=== PATIENT | male | born 1985 | race African-American/Black ===

== ENCOUNTER 2017-01-01 20:08 | Emergency (ER) | payer SELFPAY ==
[2017-01-01] MEDS ORDERED: 0.9 % SODIUM CHLORIDE 1,000 ML IV ONE (21:17)
[2017-01-01] MEDS: 0.9 % SODIUM CHLORIDE 1,000 ML IV SCH (21:25)
[2017-01-01 21:46] LABS: eGFR (African) > 60; eGFR (Non-African) > 60
[2017-01-01 21:54] LABS: BASOPHILS % 0.5 (0.0-1.5); EOSINOPHILS % 0.7 % (0.0-6.8); MEAN CORPUSCULAR HEMOGLOBIN 28.2 pg (28.0-34.0); MEAN CORPUSCULAR VOLUME 88.2 fl (80.0-100.0); MONOCYTES % 3.1 % (0.0-11.0); NEUTROPHILS # 8.8 # k/uL (1.4-7.7)
[2017-01-01] MEDS: fentaNYL CITRATE/PF 100 MCG/ 2ML AMP IVP ONE (22:22)
[2017-01-01] MEDS ORDERED: AMOXICILLIN 500 MG CAPSULE PO ONE (22:41)
[2017-01-01] MEDS ORDERED: CLINDAMYCIN HCL 150 MG CAPSULE PO ONE (22:41)
[2017-01-01] MEDS: CLINDAMYCIN HCL 150 MG CAPSULE PO ONE (22:45)
[2017-01-01] MEDS: AMOXICILLIN 250 MG/5 ML 100ml BTL PO ONE (22:45)
[2017-01-01 23:24] VITALS: BP 125/58
--- NOTE | 2017-01-02 00:34 | ED Physician Documentation ---
Abdominal Pain - HISTORIAN Historian: patient, spouse - HPI Stated Complaint: Fever, chills, right flank pain Chief Complaint: Abdominal Pain Additonal Information: rt upper and lower abd and flank pain onset three months ago intermittent sig worse past few days w/fever to 102 Onset: other (3 months ago intermittent episodes) Duration: waxing, waning Timing: worse Context: denies: out of country travel, bad food Severity: moderate Quality: pain, burning, cramping Associated Symptoms: fever, chills Exacerbated by: denies: food Relieved by: nothing Further Comments: no - ROS CONST: no problems GI/: none CVS/RESP: none EYES/ENT: none MS/SKIN/LYMPH: none NEURO/PSYCH: none - SOCIAL HX Smoking History: non-smoker Alcohol Use: none Drug Use: none - FAMILY HX Family History: no significant history - PAST HX Past History: none Surgeries/Procedures: none Home Medications: Ambulatory Orders Medication Instructions Recorded Amoxicillin [Trimox] 500 mg PO QID #40 capsule 01/01/17 Clindamycin HCl [Cleocin] 300 mg PO TID #30 capsule 01/01/17 Allergies/Adverse Reactions: Allergies Allergy/AdvReac Type Severity Reaction Status Date / Time No Known Allergies Allergy Verified 01/01/17 20:34 - VITAL SIGNS Vital Signs: Vital Signs Temp Pulse Resp BP Pulse Ox 102.9 F H 72 16 114/65 98 01/01/17 20:10 01/01/17 20:10 01/01/17 20:10 01/01/17 20:10 01/01/17 20:10 - REVIEWED ASSESSMENTS Nursing Assessment Reviewed: Yes Vitals Reviewed: Yes ED Results Lab/Radiology - Lab Results Lab Results: CT reveals gall stones - Orders Orders: ED Orders Category Date Time Status CT ABD & PELVIS W/ CON Stat Exams 01/01/[address] ABD & PELVIS W/O CON Routine Exams 01/01/17 21:34 Taken AMYLASE Routine Lab 01/01/17 Ordered AMYLASE Routine Lab 01/01/17 21:23 Completed CBC AUTO DIFF Routine Lab 01/01/17 21:23 Completed CBC/PLATELET/DIFF Routine Lab 01/01/17 Ordered CMP Routine Lab 01/01/17 Ordered CMP Routine Lab 01/01/17 21:23 Completed URINALYSIS Routine Lab 01/01/17 Ordered 0.9 % Sodium Chloride [Normal Saline] 1,000 ml Med 01/01/17 21:00 Ordered IV Q10H Amoxicillin [Amoxil 250Mg/5Ml] Med 01/01/17 22:39 Once 1,000 mg PO NOW ONE Clindamycin HCl [Cleocin] Med 01/01/17 22:39 Once 300 mg PO NOW ONE HYDROcodone /APAP 5/325 [[place] 5/325] Med 01/01/17 22:38 Once 1 each PO NOW ONE fentaNYL CITRATE/PF [Duragesic] Med 01/01/17 20:44 Discontinued 50 mcg IVP NOW ONE Abdominal Pain Physical Exam - Physical Exam General Appearance: mild distress EENT: eye inspection normal NECK: normal inspection RESPIRATORY: no resp distress, chest non-tender, breath sounds normal CVS: reg rate & rhythm, heart sounds normal ABDOMEN: soft, tenderness (rt upper and rt lower abd and flank pain - murphys gb sign = neg) SKIN: warm/dry, normal color EXTREMITIES: non-tender NEURO: oriented X3 Vital Signs: Vital Signs Temp Pulse Resp BP Pulse Ox 102.9 F H 72 16 114/65 98 01/01/17 20:10 01/01/17 20:10 01/01/17 20:10 01/01/17 20:10 01/01/17 20:10 Discharge Clincal Impression: cholelithiasis Prescriptions: Amoxicillin [Trimox] 500 mg PO QID #40 capsule Clindamycin HCl [Cleocin] 300 mg PO TID #30 capsule Referrals: Isrrael Powers MD [Primary Care Provider] - 2 Days Home Medications: Ambulatory Orders Amoxicillin [Trimox] 500 mg PO QID #40 capsule 01/01/17 Clindamycin HCl [Cleocin] 300 mg PO TID #30 capsule 01/01/17 Comments: rfec surgical consul very soon Condition: Good Disposition: 01 HOME, SELF-CARE Decision to Admit: NO Decision Time: 22:35
[2017-01-02] MEDS: HYDROcodone /APAP 5/325 1 EACH TABLET PO ONE (01:01)
[2017-01-02 05:28] LABS: APPEARANCE,URINE CLEAR (CLEAR); COLOR,URINE YELLOW (YELLOW); OCCULT BLOOD,URINE TRACE-LYSED (NEGATIVE)
[2017-01-02 05:29] LABS: UROBILINOGEN URINE 0.2 Eu (0.2-1.0)
--- NOTE | 2017-01-02 07:01 | Diagnostic Imaging Report ---
VALENTINE MONTERROSO [facility] [address] [facility] [address] [place], [place]. [address] Report Submission Date: Jan 01, 2017 9:55:16 PM CDT Patient Study Name: MIKE REECE Date: Jan 01, 2017 9:41:18 PM CDT Modality Type: CT\SR Gender: M Description: CT ABD & PELVIS W/O CO : 87 Institution: [facility] Physician: VALENTINE MONTERROSO CT abdomen pelvis without contrast History: Right flank pain Technique: Transaxial computed tomographic images of the abdomen and pelvis were obtained without the use of intravenous contrast according to standard protocol. Findings: The lung bases are clear. The heart size is normal. The liver, pancreas, spleen, and adrenal glands are normal. Numerous stones are present near the lies normal appearing gallbladder. The kidneys are normal with a calculus or hydronephrosis. Ureters can be followed to the bladder without obstruction. No bowel wall thickening dilations present. Appendix is normal. A few diverticula present scattered throughout the colon. The vascular structures are normal in course and caliber. No adenopathy is present. The bladder is normal. There is no free fluid. The osseous structures are normal. Impression: 1. No evidence of calculus, hydronephrosis, or hydroureter. 2. Diverticulosis without diverticulitis. 3. Normal appendix. 4. Cholelithiasis. Electronically signed on Jan 01, 2017 9:55:16 PM CDT by: Griffin MAZARIEGOS
== END 2017-01-01 22:50 | disposition home or self-care (01) ==
LOC: ED 20:08
DX: K80.20 Calculus of gallbladder without cholecystitis without obstruction (principal)
CPT/HCPCS: 74176; 80053; 81002; 82150; 85025; A9270; J7030; 96360; 99283; S1016